=== PATIENT | male | born 1945 | race Caucasian/White ===

== ENCOUNTER → 2016-11-25 | Outpatient (CLI) | payer BC ==
[~2016-11-25] MED LIST: COEN150C PO; DOCO1CAP10 PO; OMEG10007 PO
[2016-11-25 09:35] LABS: BASO % 0.3 %; BASO ABS # 0.02 K/uL (0-0.2); COMPLETE YES; EOS % 2.5 %; HEMATOCRIT 44.2 % (42-52); IG% 0.2 %; LYMPH % 42.8 %; MEAN CELL VOLUME 93.6 fL (80-100); MEAN CORPUSCULAR HEMOGLOBIN 32.2 pg (25-34); MEAN CORPUSCULAR HGB CONC 34.4 g/dl (32-36); MEAN PLATELET VOLUME 11.4 fL (7.4-10.4); MONO % 8.9 %; NEUT % 45.3 %; PLATELET COUNT 237 K/uL (130-400); RED BLOOD COUNT 4.72 M/uL (4.7-6.1); WHITE BLOOD COUNT 6.08 K/uL (4.8-10.8)
[2016-11-25 09:59] LABS: CHOLESTEROL/HDL RATIO 5.5
[2016-11-25 10:10] LABS: ESTIMATED AVERAGE GLUCOSE 117 mg/dl; HA1C FLAG Normal (Normal)
== END | disposition home or self-care (01) ==
LOC: C.LAB1850 07:34
PROVIDERS: ATTEND Internal Medicine
DX: E78.00 Pure hypercholesterolemia, unspecified (principal)

== ENCOUNTER → 2017-04-05 | Day surgery (SDC) | payer BC ==
[2017-03-31 08:13] VITALS: Ht 176.5 cm; Wt 73.6 kg
[~2017-04-05] VITALS: Ht 176.5 cm; Wt 73.6 kg
[~2017-04-05] MED LIST changes: +CEPH500C PO; +LIDOCAINE HCL 2% 2 ML VIAL (20MG/ML) ONE; +MIDAZOLAM HCL 1 MG/ML 2ML VIAL ONE; +ONDANSETRON INJ 2 MG/ML 2 ML VIAL ONE; +PROPOFOL IV EMULSION 10 MG/ML 20 ML VIAL IV ONE; +SODIUM CHLORIDE 0.9% 500ML 500 ML IV ONE
[2017-04-05 14:20] VITALS: TEMP 36.6
--- NOTE | 2017-04-05 14:32 | Endo History and Physical ---
History & Physical Date of Service: April 05, 2017. Chief Complaint: screening Referring Physician: Dr. Oliverio Wills History of Present Illness 71 yo CM who presents for screening colonoscopy. Past Surgical History Hx Cardiac Surgery: No Hx Internal Defibrillator: No Hx Pacemaker: No Hx Abdominal Surgery: No Hx of Implantable Prosthesis: No Hx Post-Op Nausea and Vomiting: No Hx Cancer Surgery: No Hx Thoracic Surgery: No Hx Orthopedic: No Hx Urinary Tract Surgery: No Family History None Social History Smoking Status: Former Smoker Hx Substance Use: No Hx Alcohol Use: Yes (1 DRINK/WEEK) Allergies Coded Allergies: Tetracycline (Unverified Allergy, Mild, IRRITABLE, 04/05/17) Sulfa Antibiotics (Verified Allergy, Unknown, PT UNSURE REACTION, 04/05/17) Uncoded Allergies: STEROIDS (Allergy, Intermediate, MAKES HIM HYPER & ANXIOUS, 08/05/13) Current Medications Reported Home Medications Medications Dose Route/Sig Max Daily Dose Days Date Category Co Q-10 (Coenzyme Q10 (Ubidecarenone)) 150 Mg Cap 150 Mg PO QAM 03/31/17 Reported Dha (Docosahexaenoic Acid) 200 Mg Cap 1 Cap PO QAM 03/31/17 Reported [place]-3 (Fish Oil) 1 Ea Cap 1 Cap PO QAM 03/31/17 Reported Vital Signs Weight (Kilograms): 73.64 Height (Feet): 5 Height (Inches): 9.5 Date Time Temp Pulse Resp B/P Pulse Ox O2 Delivery O2 Flow Rate FiO2 04/05/17 14:20 36.6 67 18 158/74 97 Room Air Physical Exam General Appearance: WD/WN, no apparent distress Respiratory/Chest: Auscultation: breath sounds normal Cardiovascular: Heart Auscultation: RRR Abdomen: Bowel Sounds: normal Inspection & Palpation: soft, non-distended, no tenderness, guarding & rebound Assessment and Plan Assessment: 71 yo CM who presents for screening colonoscopy. Plan: Proceed with colonoscopy.
--- NOTE | 2017-04-05 16:01 | GI REPORT ---
Procedure Date: 04/05/2017 3:28 PM Procedure: Colonoscopy Indications: Screening for colorectal malignant neoplasm Medicines: Monitored Anesthesia Care Complications: No immediate complications. Estimated Blood Loss: Estimated blood loss: none. Procedure: Pre-Anesthesia Assessment: - Prior to the procedure, a History and Physical was performed, and patient medications and allergies were reviewed. The patient's tolerance of previous anesthesia was also reviewed. The risks and benefits of the procedure and the sedation options and risks were discussed with the patient. All questions were answered, and informed consent was obtained. Prior Anticoagulants: The patient has taken no previous anticoagulant or antiplatelet agents. ASA Grade Assessment: II - A patient with mild systemic disease. After reviewing the risks and benefits, the patient was deemed in satisfactory condition to undergo the procedure. After I obtained informed consent, the scope was passed under direct vision. Throughout the procedure, the patient's blood pressure, pulse, and oxygen saturations were monitored continuously. The scope was introduced through the anus and advanced to the terminal ileum. The colonoscopy was performed without difficulty. The patient tolerated the procedure well. The quality of the bowel preparation was good. The terminal ileum, ileocecal valve, appendiceal orifice, and rectum were photographed. Findings: A 3 mm polyp was found in the cecum. The polyp was sessile. The polyp was removed with a cold biopsy forceps. Resection and retrieval were complete. Non-bleeding internal hemorrhoids were found during retroflexion. The hemorrhoids were small. Impression: - One 3 mm polyp in the cecum, removed with a cold biopsy forceps. Resected and retrieved. - Non-bleeding internal hemorrhoids. Recommendation: - Resume previous diet. - Continue present medications. - Repeat colonoscopy for surveillance based on pathology results. - Return to primary care physician as previously scheduled. Richie Villalba DO 04/05/2017 4:01:09 PM This report has been signed electronically. Note Initiated On: 04/05/2017 3:28 PM I attest to the content of the Intraoperative Record and orders documented therein, exceptions below
--- NOTE | 2017-04-05 16:02 | Anesthesiology Progress Note ---
Anesthesia Post Op Note Date & Time April 05, 2017 at 16:02 Vital Signs Pain Intensity: 0 Vital Signs Past 12 Hours Date Time Temp Pulse Resp B/P Pulse Ox O2 Delivery O2 Flow Rate FiO2 04/05/17 15:53 71 16 125/68 98 Room Air 04/05/17 14:20 36.6 67 18 158/74 97 Room Air Notes Mental Status: alert / awake / arousable, participated in evaluation Pt Amnestic to Procedure: Yes Nausea / Vomiting: adequately controlled Pain: adequately controlled Airway Patency, RR, SpO2: stable & adequate BP & HR: stable & adequate Hydration State: stable & adequate Anesthetic Complications: no major complications apparent
--- NOTE | 2017-04-05 16:07 | Discharge Instructions ---
Endoscopy Patient Instructions Date / Procedure(s) Performed April 05, 2017. Colonoscopy Allergy Information Coded Allergies: Tetracycline (Unverified Allergy, Mild, IRRITABLE, 04/05/17) Sulfa Antibiotics (Verified Allergy, Unknown, PT UNSURE REACTION, 04/05/17) Uncoded Allergies: STEROIDS (Allergy, Intermediate, MAKES HIM HYPER & ANXIOUS, 08/05/13) Discharge Date / Findings April 05, 2017. Colon polyp Internal hemorrhoids Medication Instructions Stopped Medication(s): stopped all supplements on Monday OK to resume all medications today as prescribed Reported Home Medications Medications Dose Route/Sig Max Daily Dose Days Date Category Co Q-10 (Coenzyme Q10 (Ubidecarenone)) 150 Mg Cap 150 Mg PO QAM 03/31/17 Reported Dha (Docosahexaenoic Acid) 200 Mg Cap 1 Cap PO QAM 03/31/17 Reported [place]-3 (Fish Oil) 1 Ea Cap 1 Cap PO QAM 03/31/17 Reported Provider Instructions Activity Restrictions - No exercising or heavy lifting for 24 hours. - Do not drink alcohol the day of the procedure. - Do not drive a car or operate machinery until the day after the procedure. - Do not make any important decisions or sign important papers in 24 hours after the procedure. Following Day: - Return to full activity which may include returning to work/school. Diet Start your diet with liquids and light foods (jello, soup, juice, toast). Then eat your usual diet if not nauseated. Treatment For Common After Affects For mild abdominal pain, bloating, or excessive gas: - Rest - Eat lightly - Lie on right side Follow-Up Information Follow-up with Dr. Oliverio Wills as scheduled Anesthesia Information What You Should Know You have had a procedure that required some medicine to reduce anxiety and discomfort. This treatment is called moderate sedation. After receiving the treatment, you may be sleepy, but you will be able to breathe on your own. The effects of the treatment may last for several hours. Follow these instructions along with Activity/Diet recommendations noted above: * Do NOT do anything where dizziness or clumsiness would be dangerous. * Rest quietly at home today, then you can be up and about tomorrow. * Have a responsible person stay with you the rest of today. * You may have had an I.V. today. If so, you may take the dressing off later today. Recommendations Call your doctor if: * Trouble breathing * Continuous vomiting for more than 24 hours * Temperature above 101 degrees * Severe abdominal pain or bloating * Pain not relieved by pain medicine ordered * There is increased drainage or redness from any incision * A large amount of rectal bleeding greater than 2-3 tablespoons. (If you had a polyp/s removed or have hemorrhoids, a small amount of blood - from the rectum is to be expected.) * You have any unanswered questions or concerns. IN THE EVENT OF A SERIOUS EMERGENCY, GO TO THE NEAREST EMERGENCY ROOM Your discharge instructions were prepared by provider Richie Villalba. Patient Instructions Signature Page Eber Hedrick Patient (or Guardian) Signature/Date: I have read and understand the instructions given to me by my caregivers. Caregiver/RN/Doctor Signature/Date: The above-named patient and/or guardian has received patient instructions on this date. + Original Patient Signature Page (only) stays with chart. Please make copy for patient.
[2017-04-05 16:23] VITALS: BP 149/67; PULSE 66; O2SAT 97
== END | disposition home or self-care (01) ==
LOC: C.GI 13:55
PROVIDERS: ATTEND Internal Medicine
DX: Z12.11 Encounter for screening for malignant neoplasm of colon (principal); K64.8 Other hemorrhoids; K52.9 Noninfective gastroenteritis and colitis, unspecified; Z87.891 Personal history of nicotine dependence; Z88.2 Allergy status to sulfonamides; Z88.1 Allergy status to other antibiotic agents; Z68.23 Body mass index [BMI] 23.0-23.9, adult; Z98.41 Cataract extraction status, right eye; Z98.42 Cataract extraction status, left eye

== ENCOUNTER 2017-10-16 18:39 | Emergency (ER) | payer BC ==
[~2017-10-16] VITALS: Ht 175.3 cm; Wt 81.0 kg
[~2017-10-16 18:39] MED LIST changes: -CEPH500C PO; -LIDOCAINE HCL 2% 2 ML VIAL (20MG/ML) ONE; -MIDAZOLAM HCL 1 MG/ML 2ML VIAL ONE; -ONDANSETRON INJ 2 MG/ML 2 ML VIAL ONE; -PROPOFOL IV EMULSION 10 MG/ML 20 ML VIAL IV ONE; -SODIUM CHLORIDE 0.9% 500ML 500 ML IV ONE
[2017-10-16 19:00] VITALS: TEMP 36.8; Ht 175.3 cm; Wt 81.0 kg
[2017-10-16] MEDS ORDERED: LIDO/EPINEPHRINE/SOD BICARB 20 ML VIAL INFIL ONE (19:30)
--- NOTE | 2017-10-16 19:44 | EMERGENCY ROOM VISIT NOTE ---
ED Visit Note First contact with patient: 19:17 I did evaluate and examine this patient myself. I did guide management for the patient. I agree with the APC's assessment as discussed. Please see the APC's dictation for further details. The patient has a laceration to his left hand. He is neurovascularly intact. He was given a tetanus booster and his wound was repaired.
[2017-10-16] MEDS ORDERED: DIPHTHERIA/TETANUS/PERTUSSIS 0.5 ML SYR/VIAL IM. ONE (19:45)
--- NOTE | 2017-10-16 19:47 | EMERGENCY ROOM VISIT NOTE ---
ED Visit Note First contact with patient: 19:17 Chief Complaint: Left Hand Laceration History of Present Illness: This patient is a 72-year-old male who presents to the Emergency Department with his for evaluation of their left hand laceration. Patient sustained the laceration while using a box coverer hand approximately one and half hours ago, states he slipped while cutting and caught the blade on his left hand. They report a moderate amount of bleeding initially, and has been unable to stop the bleeding. They deny any numbness or tingling into the distal extremity. They report no decreased range of motion of the affected digit. They have tried no medications for the pain. Patient rates current discomfort as a 3/10. Patient denies any other injuries. Patient is unsure of his Tetanus status, but thinks it is not currently up-to-date. He does not take any blood thinners. Medications: Reviewed in chart Allergies: Reviewed in chart PMH: No significant past medical history SHx: Lives at home with his . He denies tobacco use. ROS: All pertinent positive and negative review of systems are appropriately documented in the History of Present Illness. Physical Exam: VITAL SIGNS - Vital signs and nursing notes were reviewed. GENERAL - Alert and oriented, pleasant and cooperative, in no acute distress. Communicates well with provider and answers questions appropriately. SKIN - There is a 2 cm long laceration noted at the base of the left second finger, laterally located. The edges gape apart with traction. No foreign bodies appreciated. Upon further examination there appears to be a partially lacerated accessory tendon in the base of the wound tendon, no bony structures appreciated. There is moderate active bleeding noted. MUSCULOSKELETAL - Laceration as described above. + 5/5 strength appreciated of the affected digit, with fully intact flexion and extension of the digit. He is able to make a full fist. He can give a thumbs up, make an "okay sign," no apparent weakness. NEUROLOGIC - No sensory defects of the affected digit were appreciated utilizing light touch for evaluation. VASCULAR - Capillary refill was brisk. ED Course: Patient was seen and evaluated by myself. Differential diagnosis includes soft tissue laceration, retained foreign body, tendon laceration, among others. Costs and benefits of performing primary wound closure versus no repair were discussed with the patient who verbalizes understanding. Verbal consent was obtained prior to performing the procedure. 2 cc of 1% buffered lidocaine with epinephrine was used to anesthetize the left hand laceration. The wound was cleansed and prepped in the typical sterile fashion utilizing normal saline and Betadine. The wound was sterilely draped. Once proper anesthetization was established, the wound was further examined and demonstrated the partially lacerated tendon as discussed above. The wound was copiously irrigated with normal saline and Betadine. The wound was closed using 4 simple, 5-0 nylon sutures with the wound edges being well approximated. Patient tolerated the procedure well. No complications were met. The wound was cleansed and dressed with a Bacitracin dressing. Patient received their Adacel vaccination. Patient educated on worrisome symptoms for return visit to the Emergency Department. Patient was also encouraged to follow up with the hand surgeon. Prescription for Keflex is provided for prophylactic coverage of open tendon injury. Patient discharged to home in good condition. Current/Historical Medications Scheduled Cephalexin Monohydrate (Keflex), 500 MG PO QID Coenzyme Q10 (Ubidecarenone) (Co Q-10), 150 MG PO QAM Docosahexaenoic Acid (Dha), 1 CAP PO QAM Fish Oil ([place]-3), 1 CAP PO QAM Allergies Coded Allergies: Tetracycline (Unverified Allergy, Mild, IRRITABLE, 04/05/17) Sulfa Antibiotics (Verified Allergy, Unknown, PT UNSURE REACTION, 04/05/17) Uncoded Allergies: STEROIDS (Allergy, Intermediate, MAKES HIM HYPER & ANXIOUS, 08/05/13) Vital Signs Date Time Temp Pulse Resp B/P (MAP) Pulse Ox O2 Delivery O2 Flow Rate FiO2 10/16/17 21:30 71 18 140/73 96 10/16/17 19:00 36.8 86 20 124/71 96 Room Air Medications Administered Medications (Trade) Dose Ordered Sig/Daysi Route Start Time Stop Time Status Last Admin Dose Admin Diphtheria/ Pertussis/Tetanus Vacc (Adacel Inj) 0.5 ml ONCE ONCE IM. 10/16/17 19:45 10/16/17 19:46 DC 10/16/17 19:36 0.5 ML Cephalexin Monohydrate (Keflex 500MG Home Pack) 1 homepack NOW ONCE PO 10/16/17 21:30 10/16/17 21:31 DC 10/16/17 21:26 1 HOMEPACK Departure Information Impression Primary Impression: Laceration of left hand involving tendon Dispostion Home / Self-Care Condition GOOD Prescriptions Cephalexin Monohydrate (Keflex) 500 Mg Cap 500 MG PO QID for 5 Days, #20 CAP Prov: Soo Medina CRNP 10/16/17 Referrals Oliverio Wills M.D. (PCP) Nicholas Whitney MD Patient Instructions ED Laceration Hand, [facility] Additional Instructions Discharge Instructions: You have received 4 sutures on your left hand. These sutures are NOT dissolvable and WILL need to be removed by a health care provider in 8-10 days. You can return to the Emergency Department or contact your Primary Care Provider to have the sutures removed. You have been prescribed Keflex to be taken 4 times a day for 5 days. This is an antibiotic to help prevent infection of your wound. All antibiotics have the potential to cause diarrhea. Stop this medication and contact a medical provider if you were to develop any significant adverse side effects including: wheezing, shortness of breath, passing out, vomiting, or a diffuse rash. Always take antibiotics as directed and COMPLETE the ENTIRE course regardless of the improvement of your symptoms. Proper wound care is essential for adequate wound healing and infection prevention. You can shower and clean the wound with soap and water. Do not scour over the wound, pat dry with a towel. Do not submerse the wound (i.e. bathe or dish wash) until the sutures have been removed. You can use an antibiotic ointment with a dressing over the wound for the next 3-4 days. After this time you may leave the wound dry and open to the air. If crust develops over the wound you can use a Q-tip to apply a 1:1 peroxide:water solution to clean the wound. Look for signs of infection of the wound including: increased pain, swelling, foul discharge, streaking, or increased temperature. If any of these are noticed you should return to the Emergency Department for further assessment and treatment. As with any laceration you may have received nerve damage to the surrounding tissues. This damage may or may not be permanent. You should keep the area covered with sunscreen for the first 6 months to 1 year when at risk for exposure to help minimize scarring. You can also use scar reducing creams or Vitamin E oil to help minimize scarring. For pain control, you can use the following [id number]-[id number] medicines (if >12 yo): - Regular strength (325mg/tab) Tylenol (acetaminophen) 2 tabs every 4-6 hours as needed. Do not exceed 10 tablets in a 24 hour period. Avoid taking more than 3000mg of Tylenol per day. This includes any other sources of acetaminophen you may take on a regular basis. - Regular strength (200 mg/tab) Advil (ibuprofen) 1-2 tabs every 4-6 hours as needed. Do not exceed a dose of 2400 mg per day. You should follow up with the hand surgeon this week. Call tomorrow to schedule an appointment. Return to the emergency department if your symptoms worsen despite treatment course outlined above. Problem Qualifiers Primary Impression: Laceration of left hand involving tendon Encounter type: initial encounter Qualified Codes: S61.412A - Laceration without foreign body of left hand, initial encounter; S66.922A - Laceration of unspecified muscle, fascia and tendon at wrist and hand level, left hand, initial encounter
[2017-10-16] MEDS ORDERED: CEPH500C PO (21:25)
[2017-10-16 21:30] VITALS: BP 140/73; PULSE 71; O2SAT 96
[2017-10-16] MEDS ORDERED: CEPHALEXIN 500MG HOME PACK 1 EA BTL PO ONE (21:30)
== END 2017-10-16 21:44 | disposition home or self-care (01) ==
LOC: C.EDB 18:40 → C.EDD 21:44
DX: S66.922A Laceration of unspecified muscle, fascia and tendon at wrist and hand level, left hand, initial encounter (principal); W45.8XXA Other foreign body or object entering through skin, initial encounter; Z23 Encounter for immunization; Z79.899 Other long term (current) drug therapy; Z88.2 Allergy status to sulfonamides; Z88.8 Allergy status to other drugs, medicaments and biological substances

== ENCOUNTER → 2017-11-23 | Outpatient (CLI) | payer OTHER ==
--- NOTE | 2017-11-23 12:21 | DIAGNOSTIC IMAGING REPORT ---
CHEST 2 VIEWS ROUTINE CLINICAL HISTORY: R50.9 [id number] COMPARISON STUDY: 02/25/2008 FINDINGS: The cardiac and mediastinal contours are normal. There is no evidence of focal pulmonary consolidation. There is no evidence of failure. No pleural effusions are visualized.[ There are linear subsegmental atelectatic changes at the left lung base. IMPRESSION: No active disease in the chest. Electronically signed by: Heraclio Lal M.D. 11/23/2017 12:20 PM Dictated Date/Time: 11/23/2017 12:19 PM
[2017-11-23 13:50] LABS: INFLUENZA B ANTIGEN Neg for Influ B (NEG)
== END | disposition home or self-care (01) ==
LOC: C.LAB1850 11:59
PROVIDERS: ATTEND Physician Assistant
DX: R50.9 Fever, unspecified (principal)